=== PATIENT | female | born 1950 | race Two or more races ===

== ENCOUNTER 2019-04-16 14:29 | Inpatient (IN) | payer MEDICARE ==
[~2019-04-16] VITALS: Ht 162.6 cm; Wt 71.2 kg
[2019-04-16] MEDS ORDERED: LOSARTAN POTASSIUM 50 MG TABLET PO ONE (15:15)
[2019-04-16] MEDS ORDERED: ASPIRIN 81MG TABLET PO ONE (15:15)
[2019-04-16 15:24] LABS: CHLORIDE 105 mEq/L (98-107)
[2019-04-16 15:28] LABS: BASOPHILS % 0.4 % (0.0-2.0); EOSINOPHILS % 1.2 % (0.0-5.0); HEMATOCRIT. 40.8 % (36.0-48.0); LYMPHOCYTES % 15.4 % (20.0-50.0); MEAN CORPUSCULAR HEMOGLOBIN 29.7 pg (28.0-32.0); MEAN CORPUSCULAR VOLUME 86.5 fL (81.0-99.0); MEAN PLATELET VOLUME 9.3 fl (7.4-10.4); PLATELET 132 x1000/uL (130-400); RED BLOOD CELL COUNT 4.72 mill/uL (4.2-5.4); RED CELL DISTRIBUTION WIDTH 13.9 % (11.6-14.6)
[2019-04-16 16:28] LABS: CLARITY URINE CLEAR (CLEAR); COLOR URINE YELLOW (YELLOW); KETONES URINE NEGATIVE (NEGATIVE); LEUKOCYTE ESTERASE URINE 1+ (NEGATIVE); NITRITE URINE NEGATIVE (NEGATIVE); OCCULT BLOOD URINE TRACE (NEGATIVE); PH URINE 7.5 (4.5-8.0); PROTEIN URINE NEGATIVE (NEGATIVE); SPECIFIC GRAVITY URINE 1.008 (1.005-1.030); UROBILINOGEN URINE 0.2 E.U./dL (0.2-1.0)
[2019-04-16] MEDS ORDERED: ACETAMINOPHEN 325MG TABLET PO PRN (16:30)
[2019-04-16] MEDS ORDERED: HYDROCODONE/ACETAMINOPHEN 5/325MG TABLET PO PRN (16:30)
[2019-04-16] MEDS ORDERED: GUAIFENESIN 200MG/10ML SUGAR FREE UDC PO PRN (16:30)
[2019-04-16] MEDS ORDERED: ONDANSETRON HCL 4MG/2ML INJ IV PRN (16:30)
[2019-04-16] MEDS ORDERED: IPRATROPIUM/ALBUTEROL 0.5-3(2.5)MG/3ML NEB HHN PRN (16:30)
[2019-04-16] MEDS ORDERED: MAGNESIUM/ALUMINUM HYDROXIDE/SIMETHICONE 30ML UDC PO PRN (16:30)
[2019-04-16] MEDS ORDERED: DIPHENHYDRAMINE 50MG/ML VIAL IV PRN (16:30)
[2019-04-16] MEDS ORDERED: DOCUSATE SODIUM 100MG CAPSULE PO PRN (16:30)
[2019-04-16] MEDS ORDERED: CLONIDINE 0.1MG TABLET PO PRN (16:30)
[2019-04-16] MEDS ORDERED: LEVOFLOXACIN 500MG PREMIX 100 ML IV ONE (17:00)
[2019-04-16 21:00] VITALS: BP 146/63
[2019-04-16 21:15] VITALS: BP 146/63
[2019-04-16] MEDS ORDERED: GLIP10TA10 PO (21:34)
[2019-04-16] MEDS ORDERED: ALEN70TA68 PO (21:34)
[2019-04-16] MEDS ORDERED: PARO10TA74 PO (21:34)
[2019-04-16] MEDS ORDERED: LIP40 PO (23:39)
[2019-04-16] MEDS ORDERED: AMLO5TAB88 PO (23:43)
[2019-04-16] MEDS ORDERED: METF-414 PO (23:43)
[2019-04-16] MEDS ORDERED: LOSA50TA41 PO (23:43)
[2019-04-17] VITALS: BP 124/60
[2019-04-17] MEDS ORDERED: DEXTROSE 50% WATER 50ML SYRINGE IV PRN (01:00)
[2019-04-17 04:00] VITALS: BP 110/57
[2019-04-17] MEDS: BLOOD SUGAR DIAGNOSTIC STRIP TEST SCH ×4 (06:19→20:33)
[2019-04-17] MEDS: INSULIN LISPRO 100 UNITS/ML SUBCUT SCH ×4 (06:19→20:32)
[2019-04-17 06:43] LABS: BASOPHILS % 0.3 % (0.0-2.0); EOSINOPHILS % 1.6 % (0.0-5.0); HEMATOCRIT. 39.8 % (36.0-48.0); HEMOGLOBIN. 13.6 g/dL (12.0-16.0); LYMPHOCYTES % 16.6 % (20.0-50.0); MEAN CORPUSCULAR HEMOGLOBIN 29.4 pg (28.0-32.0); MEAN CORPUSCULAR VOLUME 86.3 fL (81.0-99.0); MEAN PLATELET VOLUME 9.2 fl (7.4-10.4); MONOCYTES % 8.1 % (2.0-8.0); NEUTROPHILS % 73.4 % (40.0-76.0); PLATELET 138 x1000/uL (130-400); RED BLOOD CELL COUNT 4.61 mill/uL (4.2-5.4); RED CELL DISTRIBUTION WIDTH 13.6 % (11.6-14.6)
[2019-04-17 07:17] LABS: CHLORIDE 109 mEq/L (98-107)
[2019-04-17 07:33] LABS: LDL CHOLESTEROL 51 mg/dL (5-100)
[2019-04-17 07:35] LABS: HDL CHOLESTEROL 43 mg/dL (40-59)
[2019-04-17 08:00] VITALS: BP 120/45
[2019-04-17] MEDS: ENOXAPARIN 40MG/0.4ML SYR SUBCUT SCH (08:44)
[2019-04-17 12:00] VITALS: BP 122/64
[2019-04-17] MEDS: LOSARTAN POTASSIUM 50 MG TABLET PO SCH (12:39)
[2019-04-17] MEDS: GLIPIZIDE 10MG TABLET PO SCH ×2 (12:39→17:58)
[2019-04-17] MEDS: AMLODIPINE 5MG TABLET PO SCH (12:39)
[2019-04-17] MEDS: SIMETHICONE 80MG TABLET CHEW PO SCH ×2 (12:39→17:58)
[2019-04-17] MEDS: PANTOPRAZOLE 40MG DR TABLET PO SCH (12:39)
[2019-04-17] MEDS: PAROXETINE HCL 10MG TABLET PO SCH (12:39)
[2019-04-17] MEDS ORDERED: REGADENOSON 0.4 MG/5 ML IV SCH (13:15)
[2019-04-17 14:18] LABS: *AMPHETAMINES SCREEN URINE NEGATIVE (NEGATIVE); *BARBITURATES SCREEN URINE NEGATIVE (NEGATIVE); *BENZODIAZEPINES SCREEN URINE NEGATIVE (NEGATIVE); *COCAINE SCREEN URINE NEGATIVE (NEGATIVE); CANNABINOID URINE SCREEN NEGATIVE (NEGATIVE); METHADONE URINE SCREEN NEGATIVE (NEGATIVE); OPIATES URINE SCREEN NEGATIVE (NEGATIVE); PHENCYCLIDINE URINE SCREEN NEGATIVE (NEGATIVE)
[2019-04-17] MEDS: CEFTRIAXONE 1 G PREMIX 50 ML IV SCH (14:49)
[2019-04-17 16:00] VITALS: BP 110/54
[2019-04-17] MEDS: SUCRALFATE 1G TABLET PO SCH ×2 (17:57→20:33)
[2019-04-17 20:00] VITALS: BP 123/93
[2019-04-17] MEDS ORDERED: ATORVASTATIN CALCIUM 40MG TABLET PO SCH (21:00)
[2019-04-18] VITALS: BP 118/90
[2019-04-18] MEDS: SIMETHICONE 80MG TABLET CHEW PO SCH ×4 (03:01→17:02)
[2019-04-18 04:00] VITALS: BP 116/54
[2019-04-18 05:44] LABS: BASOPHILS % 0.3 % (0.0-2.0); EOSINOPHILS % 2.2 % (0.0-5.0); HEMOGLOBIN. 13.5 g/dL (12.0-16.0); LYMPHOCYTES % 18.1 % (20.0-50.0); MEAN CORPUSCULAR HEMOGLOBIN 29.7 pg (28.0-32.0); MEAN CORPUSCULAR VOLUME 85.8 fL (81.0-99.0); MEAN PLATELET VOLUME 9.1 fl (7.4-10.4); MONOCYTES % 7.7 % (2.0-8.0); NEUTROPHILS % 71.7 % (40.0-76.0); PLATELET 138 x1000/uL (130-400); RED BLOOD CELL COUNT 4.54 mill/uL (4.2-5.4); RED CELL DISTRIBUTION WIDTH 13.9 % (11.6-14.6)
[2019-04-18 05:51] LABS: CHLORIDE 106 mEq/L (98-107)
[2019-04-18] MEDS: PANTOPRAZOLE 40MG DR TABLET PO SCH (06:28)
[2019-04-18] MEDS: GLIPIZIDE 10MG TABLET PO SCH ×2 (06:28→17:02)
[2019-04-18] MEDS: BLOOD SUGAR DIAGNOSTIC STRIP TEST SCH ×3 (06:29→16:48)
[2019-04-18] MEDS: INSULIN LISPRO 100 UNITS/ML SUBCUT SCH ×3 (06:31→17:05)
[2019-04-18] MEDS: SUCRALFATE 1G TABLET PO SCH ×3 (06:33→17:02)
[2019-04-18 08:00] VITALS: BP 129/60
[2019-04-18] MEDS ORDERED: REGADENOSON 0.4 MG/5 ML IV ONE (08:42)
[2019-04-18] MEDS: LOSARTAN POTASSIUM 50 MG TABLET PO SCH (10:43)
[2019-04-18] MEDS: PAROXETINE HCL 10MG TABLET PO SCH (10:43)
[2019-04-18] MEDS: ENOXAPARIN 40MG/0.4ML SYR SUBCUT SCH (10:43)
[2019-04-18] MEDS: AMLODIPINE 5MG TABLET PO SCH (10:44)
[2019-04-18 12:00] VITALS: BP 131/61
[2019-04-18] MEDS: CEFTRIAXONE 1 G PREMIX 50 ML IV SCH (13:00)
[2019-04-18 16:00] VITALS: BP 151/78
[2019-04-18] MEDS ORDERED: NITR-87 MT (17:03)
[2019-04-18] MEDS ORDERED: PANT40TA4 MT (17:03)
[2019-04-18] MEDS ORDERED: SIME80TA15 MT (17:03)
[2019-04-18 17:29] VITALS: BP 151/78
== END 2019-04-18 18:00 | disposition home or self-care (01) | DRG 690 ==
LOC: ER 14:29 → 5WST 16:13 → EDBEDREQTM 16:17 → EDBEDREQ 16:17 → ENRESERV 19:39 → CANRESERV 19:39 → ENRESERV 19:46
PROVIDERS: ADMIT Internal Medicine; ATTEND Internal Medicine
DX: N39.0 Urinary tract infection, site not specified (principal); K21.9 Gastro-esophageal reflux disease without esophagitis; R31.9 Hematuria, unspecified; R07.89 Other chest pain; I16.0 Hypertensive urgency; M81.0 Age-related osteoporosis without current pathological fracture; E78.5 Hyperlipidemia, unspecified; E11.65 Type 2 diabetes mellitus with hyperglycemia; D72.821 Monocytosis (symptomatic); I10 Essential (primary) hypertension; Z90.710 Acquired absence of both cervix and uterus; Z79.84 Long term (current) use of oral hypoglycemic drugs; Z88.0 Allergy status to penicillin; Z79.899 Other long term (current) drug therapy
CPT/HCPCS: 36415; 71045; 78452; 80048; 80061; 80305; 81003; 82962; 83036; 83735; 83880; 84100; 84443; 84484; 85379; 87077; 87186; 93005; 93017; 93306; 93970; 99285; A9500; J0696; J1650; J1815; J1956; J2785